=== PATIENT | male | born 1970 | race Caucasian/White ===

== ENCOUNTER → 2020-02-08 08:40 | Outpatient (CLI) | payer OTHER | END | disposition home or self-care (01) | LOC: D.HCCECHO 08:40 | PROVIDERS: ATTEND Internal Medicine Cardiovascular Disease | DX: I25.119 Atherosclerotic heart disease of native coronary artery with unspecified angina pectoris (principal) ==

== ENCOUNTER 2020-02-19 11:25 | Outpatient (CLI) | payer OTHER ==
[~2020-02-19] VITALS: Ht 175.3 cm; Wt 80.5 kg
--- NOTE | ~2020-02-19 | HEMODYNAMI ---
PATIENT:KODAK SHANE MEDICAL RECORD: [id number] : 66 LOCATION:[facility] ADMISSION DATE: 02/19/20 Generatedon:02/19/202013:31 Patient name: KODAK SHANE Patient #: [id number] : 1970 Date of study: 02/19/2020 Page: Of Hemodynamic Procedure Report Patient Data Patient Demographics Procedure consent was obtained First Name: KODAK Gender: Male Last Name: ACOSTA : 1970 Middle Initial: VAL Age: 49 year(s) Patient #: [id number] Race: Unknown SSN: [id number] Additional ID: [id number] Contact details Address: [address] [place] [address] State: [place] City: [place] Zip code: [address] Past Medical History Allergies: No known allergies Admission Admission Data Admission Date: 02/19/2020 Admission Time: 11:25 Arrival Date: 02/19/2020 Arrival Time: 0:00 Admit Source: Other Insurance Payor: Private health insurance [facility] #: [id number] Height (in.): 70 BSA: 1.99 (m2) Height (cm.): 177.8 BMI: 25.68 (kg/m2) Weight (lbs.): 179 Weight (kg.): 81.19 Procedure Procedure Types Cath Procedure Diagnostic Procedure C [facility] w/Coronaries Sedation Charges Moderate Sedation up to 15 minutes Procedure Description Procedure Date Procedure Date: 02/19/2020 Procedure Start Time: 13:12 Procedure End Time: 13:29 Procedure Staff Name Function Grover Dunn MD Performing Physician Babita Pozo RT Monitor Maia Pardo RN Nurse Aisha Ny RT Scrub Procedure Data Cath Procedure Fluoroscopy Diagnostic fluoroscopy Total fluoroscopy Time: 3.2 time: 3.2 min min Diagnostic fluoroscopy Total fluoroscopy dose: 578 dose: 578 mGy mGy Contrast Material Contrast Material Type Amount (ml) Isovue 300 62 Entry Location Entry Primary Successful Side Size Upsize Upsize Entry Closure Aiken ccessful Closure Location (Fr) 1 (Fr) 2 (Fr) Remarks Device Remarks Radial Right 6 Fr Mechanical artery Short Compression Estimated blood loss: 10 ml Diagnostic catheters Device Type Used For End Catheter Placement DIAGNOSTIC Aquiles 110cm Procedure 5Fr catheter ([id number]) DIAGNOSTIC Newton 110cm 5 Procedure Fr catheter ([id number]) Procedure Complications No complications Procedure Medications Medication Administration Route Dosage 0.9% NaCl I.V. 100 ml/hr Oxygen etCO2 Nasal cannula 2 l/min Lidocaine 2% added to field 20 Heparin Flush Bag added to field 2 bags (1000units/500ml NS) Radial Cocktail added to field 1 syringe (Verapamil 2mg/Nitro 400mcg/Heparin 1500units) Versed I.V. 2 mg Fentanyl I.V. 50 mcg Hemodynamics Rest BSA: 1.99 (m2) O2 Consumption: Estimated: 229.01 (ml/min) O2 Consumption indexed : Estimated:115.08 (ml/min/m) Heart Rate: 59 (bpm) Pressure Samples Time Site Value (mmHg) Purpose Heart Use Rate(bpm) 13:15 LV 149/-12,17 Snapshot 78 13:15 LV 125/-9,4 Snapshot 77 Gradients Valve Time Site Site Mean SEP/DFP Peak To Heart Use 1 2 (mmHg) (sec/min) Peak Rate (mmHg) (bpm) Aortic 13:16 LV AO 76 Snapshots Pre Cath Intra NCS Post Cath Vital Signs Time Heart Resp SPO2 etCO2 NIBP (mmHg) Rhythm Pain Sedation Rate (ipm) (%) (mmHg) Status Level (bpm) 12:57:36 62 14 100 31.2 139/90(106) NSR 0 (11) 10(A) , No pain 13:01:52 68 24 98 32.7 122/79(92) NSR 0 (11) 10(A) , No pain 13:06:04 68 23 97 35.7 120/75(91) NSR 0 (11) 10(A) , No pain 13:10:16 62 22 98 35.7 129/73(87) NSR 0 (11) 10(A) , No pain 13:14:26 73 26 97 25.3 109/86(100) NSR 0 (11) 10(A) , No pain 13:18:34 68 26 96 29.7 109/73(88) NSR 0 (11) 10(A) , No pain 13:22:39 66 15 95 37.1 112/76(85) NSR 0 (11) 10(A) , No pain 13:26:45 76 17 96 40.9 126/83(97) NSR 0 (11) 10(A) , No pain Medications Time Medication Route Dose Verified Delivered Reason Notes E ffectiveness by by 12:56:43 0.9% NaCl I.V. 100 Grover Maia used for ml/hr Shaun Pardo supervisor telephone answering service 12:56:51 Oxygen etCO2 2 l/min Grover Maia used for Nasal Shaun Pardo procedure cannula RN 12:56:56 Lidocaine 2% added 20ml Gorver Grover for local to vial Shaun Dunn MD anesthetic field 12:57:00 Heparin Flush added 2 bags Grover Grover used for Bag to Shaun Dunn MD procedure (1000units/500ml field NS) 12:57:12 Radial Cocktail added 1 Grover Grover used for (Verapamil to syringe Shaun Dunn MD procedure 2mg/Nitro field 400mcg/Heparin 1500units) 13:13:51 Versed I.V. 2 mg Grover Maia for Shaun Pardo sedation RN 13:14:00 Fentanyl I.V. 50 mcg Grover Maia for Shaun Pardo sedation roller engraver Log Time Note 11:17:01 Admit Source: Other 11:17:03 Arrival Date: 02/19/2020 12:00:00 AM 11:17:26 Insurance Payor : Private health insurance 11:17:37 Patient Height : 70 inches 11:17:40 Patient Weight : 179 lbs 11:18:13 Diagnostic Cath Status : Elective 12:21:56 Informed consent obtained and on chart 12:46:51 Babita VALLECILLO(R) sent for patient. Start room use. 12:46:54 Time tracking: Regular hours (M-F 7:00 - 5:00) 12:47:00 Procedure Status Elective Heart Cath (OP). 12:47:10 Plan of Care:Hemodynamics will remain stable., Cardiac rhythm will remain stable., Comfort level will be maintained., Respiratory function will remain adequate., Patient/ family verbilizes understanding of procedure., Procedure tolerated without complication., Recovers from procedure without complications.. 12:48:00 Stress Test: yes; abnormal INFERIOR 12:56:32 Vital chart was started 12:56:43 0.9% NaCl 100 ml/hr I.V. was administered by Maia Pardo RN; used for procedure; Verbal order read back and verified. 12:56:51 Oxygen 2 l/min etCO2 Nasal cannula was administered by Maia Pardo RN; used for procedure; Verbal order read back and verified. 12:56:56 Lidocaine 2% 20ml vial added to field was administered by Grover Dunn MD; for local anesthetic; Verbal order read back and verified. 12:57:00 Heparin Flush Bag (1000units/500ml NS) 2 bags added to field was administered by Grover Dunn MD; used for procedure; Verbal order read back and verified. 12:57:12 Radial Cocktail (Verapamil 2mg/Nitro 400mcg/Heparin 1500units) 1 syringe added to field was administered by Grover Dunn MD; used for procedure; Verbal order read back and verified. 12:58:55 Warm blankets applied, and malcom hugger turned on for patient comfort. 12:58:56 Correct patient and procedure confirmed by team. 12:58:57 ECG and BP/O2 sat monitors applied to patient. 12:58:58 Baseline sample Acquired. 12:59:03 Rhythm: sinus rhythm 12:59:05 Full Disclosure recording started 12:59:20 H&P Date Dictated: 01/28/2020 Within 30 days and on chart., H&P Addendum completed by physician on day of procedure. (MUST COMPLETE FOR ALL OUTPATIENTS). 12:59:22 Pre-procedure instructions explained to patient. 12:59:24 Family in waiting room. 12:59:26 Patient NPO since Midnight. 12:59:34 Patient allergic to No known allergies 12:59:39 Is the patient allergic to Iodine/contrast media? No. 12:59:43 Was the patient premedicated? Yes 13:00:01 Is patient on blood thinner?Yes 13:00:04 ACC The patient was administered the following blood thiners within the last 24 hours: ACCEffient 13:00:11 Patient diabetic? No. 13:00:17 Snore? Yes 13:00:19 Sleep apnea? Yes 13:00:25 Dentures? No ? 13:00:33 Patient pain scale 0/10 ?. 13:00:39 IV patent on arrival in left forearm with 0.9% NaCl at [facility]. 13:00:42 Lab results completed and on chart. 13:00:48 Right Radial & Right Groin area was prepped with chlora-prep and draped in sterile fashion 13:00:49 Alarms reviewed by R. N. 13:00:50 Sharps counted by scrub and verified by R.N. 13:00:51 Physician paged 13:03:32 Maximum allowable contrast dose (3.7 X eGFR X 0.75)208 ml. 13:03:36 2) 60-89 Mildly reduced kidney function, and other findings (as for stage 1) point to kidney disease. 13:12:04 Physician arrived 13:12:05 --------ALL STOP TIME OUT------ 13:12:05 Final Timeout: patient, procedure, and site verified with staff and physician. All members of the team are in agreement. 13:12:08 Right Radial & Right Groin site verified by team. 13:12:13 Fire Safety Assessment: A--An alcohol-based skin anteseptic being used preoperatively., C--Open oxygen or nitrous oxide is being used., D--An ESU, laser, or fiber-optic light is being used. 13:12:18 Physical assessment completed. ASA score P 3 - A patient with severe systemic disease as per Grover Dunn MD. 13:12:22 Sedation plan: IV Moderate Sedation Medication:Versed, Fentanyl 13:12:31 Use device set Radial Dx or PCI 13:12:34 Procedure started. 13:12:51 Local anesthetic to right radial artery with Lidocaine 2% by Grover Dunn MD.INITIAL ACCESS ONLY 13:13:02 A 6 Fr Short sheath was inserted into the Right Radial artery 13:13:07 ACIST Syringe (54344) opened to sterile field. 13:13:08 Medline Cath Pack ([id number]) opened to sterile field. 13:13:08 Bag Decanter (2002) opened to sterile field. 13:13:09 ACIST Hand Control (78889) opened to sterile field. 13:13:09 ACIST Manifold (57278) opened to sterile field. 13:13:10 Tegaderm 4 x 4 (1626W) opened to sterile field. 13:13:11 MBrace Wrist Support ([id number]) opened to sterile field. 13:13:11 NEEDLE Cook 21G 4cm Radial (G83879) opened to sterile field. 13:13:13 EMERALD Guide Wire (502-451) opened to sterile field. 13:13:15 SHEATH 6FR RAIN (6201740) opened to sterile field. 13:13:51 Versed 2 mg I.V. was administered by Maia Pardo RN; for sedation; Verbal order read back and verified. 13:14:00 Fentanyl 50 mcg I.V. was administered by Maia Pardo RN; for sedation; Verbal order read back and verified. 13:14:25 A DIAGNOSTIC Aquiles 110cm 5Fr catheter (289715) was advanced over the wire and used for Procedure. 13:14:31 LV angiography performed. 13:15:00 LV gram done using VAIL 13:16:27 EF : 55 % 13:17:04 LV hemodynamics recorded. 13:17:30 RCA angiography performed. 13:19:18 Catheter removed. 13:19:44 A DIAGNOSTIC Newton 110cm 5 Fr catheter (302133) was advanced over the wire and used for Procedure. 13:20:21 LCA angiography performed. 13:24:01 Catheter removed. 13:26:23 ZEPHYR REGULAR TR BAND (148291) opened to sterile field. 13:26:41 Sheath removed intact; hemostasis achieved with Mechanical Compression to the Right Radial artery. 13:26:45 Procedure ended.(Physican Out) 13:27:01 Fluoroscopy time 03.20 minutes. 13:27:06 Fluoroscopy dose: 578 mGy 13:27:06 Flurop Dose total: 578 13:27:12 Dose Area Product 49523 mGy/cm. 13:27:18 Contrast amount:Isovue 300 62ml. 13:27:21 Maximum allowable dose exceeded? No. 13:27:22 Sharps counted by scrub and verified by R.N. 13:27:26 Insertion/operative site no bleeding no hematoma. 13:27:35 Post right radial artery:stable 13:27:49 Post Procedure Pulses reassessed and unchanged 13:27:53 Post-procedure physical assessment completed. ASA score P 2 - A patient with mild systemic disease as per Grover Dunn MD. 13:27:56 Post procedure rhythm: unchanged. 13:27:58 Estimated blood loss: 10 ml 13:28:00 Post procedure instruction explained to patient.Patient verbalizes understanding. 13:29:05 Procedure type changed to Cath procedure, Diagnostic procedure, LHC, LHC w/Coronaries, Sedation Charges, Moderate Sedation up to 15 minutes 13:29:08 Procedure and supply charges have been captured, reviewed, submitted and are correct. 13:29:33 Procedure Complication : No complications 13:29:37 Vital chart was stopped 13:29:38 [facility] Findings: mild to moderate CAD (<70%) 13:29:42 Report given to Pre/Post Procedure Room. 13:29:45 Patient transfered to Pre/Post Procedure Room with Stretcher. 13:29:47 Procedure ended. 13:29:47 Full Disclosure recording stopped 13:29:51 End room use (Document Last) Device Usage Item Name Manufacture Quantity Catalog Hospital Part Current Minima l Lot# / Number Charge Number Stock Stock Serial# Code ACIST Acist 1 29195 130990 706373 177225 20 Syringe Medical (25538) Systems Inc Medline Medline 1 [id number] 674571 53482 443581 5 Cath Pack ([id number]) Bag Microtek 1 2001S 115464 15414 214637 5 Decanter Medical Inc. () ACIST Hand Acist 1 70443 484502 866265 451081 5 Control Medical (76956) Systems Inc ACIST Acist 1 84401 978836 364203 059210 5 Manifold Medical (88495) Systems Inc Tegaderm 4 3M 1 1626W 828341 502304 308805 5 x 4 (1626W) MBrace Advanced 1 140-0250-00 627056 53670 725542 5 Wrist Vascular Support Dynamics ([id number]) NEEDLE Cook Cook Medical 1 [id number] 502225 032038 211314 5 21G 4cm Radial (T68788) EMERALD Cardinal 1 502-455 695568 702936 636563 5 Guide Wire [facility] (501-455) SHEATH 6FR Cardinal 1 3980420 218146 0599034 431662 5 [facility] (4489164) DIAGNOSTIC Terumo 1 40-5023 225656 168499 555053 5 Aquiles 110cm 5Fr catheter (050760) DIAGNOSTIC Terumo 1 75-8154 507226 008950 520051 5 Newton 110cm 5 Fr catheter (255207) ZEPHYR Cardinal 1 176264 962528 8086718 004485 5 REGULAR TR Health BAND (954951) Signature Audit [place] Stage Time Signature Unsigned Intra-Procedure 02/19/2020 Babita Pozo 1:30:21 PM RT(R) Intra-Procedure 02/19/2020 Maia Pardo 1:31:04 PM RN Intra-Procedure 02/19/2020 Grover Dunn MD 1:31:29 PM [facility] [address] [place] [address]
[2020-02-19] MEDS ORDERED: BUPRENORPHINE HC8 MG SL (11:59)
[2020-02-19] MEDS ORDERED: COREG 3.1253.125 MG PO (12:00)
[2020-02-19] MEDS ORDERED: BAYER CHEWABLE81 MG PO (12:00)
[2020-02-19] MEDS ORDERED: EFFIENT10 MG PO (12:01)
[2020-02-19] MEDS ORDERED: LIPITOR80 MG PO (12:01)
[2020-02-19 12:12] VITALS: BP 158/80; Ht 175.3 cm; Wt 80.5 kg
[2020-02-19 12:24] LABS: HEMOGLOBIN 15.5 g/dL (13.5-17.5); LYMPHOCYTES 18.1 % (15-50); MCH 30.6 pg (26.0-34.0); MCHC 33.7 g/dL (31.0-37.0); MCV 90.7 fL (80.0-100.0); MEAN PLATELET VOLUME 9.7 fL (7.4-10.4); NEUTROPHILS 76.1 % (40-80); PLATELET COUNT 289 10x3/uL (130-400); RBC 5.07 10x6/uL (4.20-6.10); WBC 13.1 10x3/uL (4.8-10.8)
[2020-02-19 12:43] LABS: CALC OSMOLALITY 282 mosm/kg (275-300); CALCIUM 8.8 mg/dL (8.5-10.1); CHLORIDE - SERUM 105 mmol/L (98-107); CREATININE - SERUM 1.1 mg/dL (0.6-1.3); GLUCOSE 93 mg/dL (74-106); POTASSIUM - SERUM 3.9 mmol/L (3.5-5.1); SODIUM 143 mmol/L (136-145); UREA NITROGEN 8 mg/dL (7-18); eGFR NON AFRICAN AMERICAN 75 mL/min (90-120)
[2020-02-19 12:52] LABS: ALT (SGPT) 31 U/L (10-68); CHOL - HDL RATIO 2.8 ratio (2.3-4.9); CHOLESTEROL, TOTAL 108 mg/dL (0-200); HDL CHOLESTEROL 38 mg/dL (32-96); LDL CHOLESTEROL 55 mg/dL (0-100); LDL-HDL RATIO 1.4 ratio (1.5-3.5); TRIGLYCERIDE 75 mg/dL (30-200)
--- NOTE | 2020-02-19 13:45 | NUR ---
REC'D TO ROOM 3 VIA STRETCHER FROM CAMPUS SECURITY OFFICER. MONITORS ESTAB - SEE MANAGER FIELD. AT BS. ALARMS ON AND C/L IN REACH.
--- NOTE | 2020-02-19 14:01 | NUR ---
PT RESTING QUIETLY, R WRIST SITE C/D/I, NO S/S BLEEDING OR HEMATOMA VSS. AT BS, SHORT APNIC PERIODS NOTED, O2 SAT REMAINS 96% ON RA. ALARMS ON AND C/L IN REACH.
--- NOTE | 2020-02-19 14:33 | NUR ---
R WRIST SITE C/D/I, NO S/S BLEEDING OR SWELLING. SANDWICH TRAY AND COLA PROVIDED.
--- NOTE | 2020-02-19 14:44 | NUR ---
R WRIST SITE C/D/I, 2CC AIR REMOVED FROM Z BAND. NO S/S BLEEDING OR HEMATOMA. AT BS. C/L IN REACH.
--- NOTE | 2020-02-19 14:57 | NUR ---
4 CC AIR TOTAL REMOVED FROM Z BAND, NO S/S BLEEDING OR HEMATOMA. VSS. PT DENIES NEEDS.
--- NOTE | 2020-02-19 15:15 | NUR ---
TOTAL OF 6CC AIR REMOVED FROM Z BAND. NO S/S BLEEDING OR HEMATOMA. PT RESTING QUIETLY, DENIES NEEDS.
--- NOTE | 2020-02-19 15:36 | NUR ---
ALL AIR REMOVED FROM Z BAND, NO S/S BLEEDING OR HEMATOMA. VSS. PIV D/C'D INTACT, DRESSING APPLIED.
--- NOTE | 2020-02-19 15:55 | NUR ---
ALL D/C INSTRUCTIONS REVIEWED WITH PT AND HIS . R WRIST SITE C/D/I. PT ALLOWED UP TO GET DRESSED.
--- NOTE | 2020-02-19 15:59 | NUR ---
ZBAND OFF AND DSG APPLIED. WRIST IMMOBILIZER IN PLACE.
--- NOTE | 2020-02-19 16:10 | NUR ---
PT D/C'D VIA WC WITH ALL PAPER WORK AND BELONGINIGS.
== END 2020-02-19 16:10 | disposition home or self-care (01) ==
LOC: D.CATH 11:25
PROVIDERS: ATTEND Internal Medicine Cardiovascular Disease
DX: I25.119 Atherosclerotic heart disease of native coronary artery with unspecified angina pectoris (principal); R94.30 Abnormal result of cardiovascular function study, unspecified; R06.09 Other forms of dyspnea; I10 Essential (primary) hypertension; E78.5 Hyperlipidemia, unspecified; Z72.0 Tobacco use